=== PATIENT | male | born 1960 | race Caucasian/White ===

== ENCOUNTER 2021-12-23 08:35 | Emergency (ER) | payer OTHER ==
[2021-12-23 09:02] LABS: HEMOGLOBIN 15.9 gm/dl (14.0-17.5); RED BLOOD COUNT 4.73 M/UL (4.20-5.50); WHITE BLOOD COUNT 7.1 K/UL (4.5-11.0)
[2021-12-23 09:17] LABS: BUN/CREATININE RATIO 14 (0-10)
[2021-12-23] MEDS ORDERED: CYCLOBENZAPRINE10 MG PO (11:34)
== END 2021-12-23 12:05 | disposition home or self-care (01) ==
LOC: ER1 08:35
PROVIDERS: Family Medicine
DX: S39.012A Strain of muscle, fascia and tendon of lower back, initial encounter (principal); N20.0 Calculus of kidney; M51.36 Other intervertebral disc degeneration, lumbar region; X58.XXXA Exposure to other specified factors, initial encounter
CPT/HCPCS: 80048; 81001; 85025; 96374; 99284; J1885